=== PATIENT | female | born 1940 | race Caucasian/White ===

== ENCOUNTER → 2018-08-22 | Outpatient (CLI) | payer MEDICARE, BC ==
--- NOTE | 2018-08-22 13:40 | RADIOLOGY IMAGING REPORT ---
FACILITY: [facility] PATIENT NAME: Chtaa Archuleta : 1940 MR: [id number] V: [id number] EXAM DATE: ORDERING PHYSICIAN: LUPIS WATTS TECHNOLOGIST: Location: [facility] Patient: Chata Archuleta : 1940 Visit/Account:[id number] Date of Sevice: 08/22/2018 DEXA Scan Clinical history: Postmenopausal. Comparison: None available. LUMBAR SPINE: The bone mineral density (BMD) measured from L1-L4 correlates with a Z-score 1.1 and a T-score of -0. 1 which is Normal as defined by the World Health Organization. The corresponding risk of fracture in the lumbar spine is Not increased compared with a young adult reference population. HIP: Bone mineral density (BMD) measured in the Left total hip region correlates with a Z-score 0.5 and a T-score of -1 which is Normal as defined by the World Health Organization. The corresponding risk of fracture in the hip is 2 times increased compared with a young adult reference population. T score left femoral neck -2 Bone mineral density (BMD) measured in the Femoral Neck region measures 0.763 g/cm2. Impression: 1. Lumbar spine: Normal. 2. Left Hip: Normal. 3. Femoral Neck: Bone Mineral Density is 0.763 g/cm2 The next DEXA scan of this patient should include the following sites: L1-L4 and the left hip. FRAX? WHO Fracture Risk Assessment Tool link: <http://www.shef.ac.uk/FRAX/tool.jsp?locationValue=9> PLEASE NOTE: 1) The World Health Organization defines low BMD as follows: T-score Normal > -1 Osteopenia < -1 and > -2.5 Osteoporosis < -2.5 without fractures Established osteoporosis < -2.5 with fractures 2) In general, you may wish to consider: Diagnosis Treatment Follow-up DEXA Normal BMD Prevention 2-3 years Osteopenia Prevention/therapy 1-2 years Osteoporosis Therapy Yearly 3) Fracture risk estimated from the T-score is more accurate for vertebral fractures (often spontane ous) than for hip fractures. Report Dictated By: Aysha Castanon MD at 08/22/2018 1:36 PM Report E-Signed By: Aysha Castanon MD at 08/22/2018 1:37 PM WSN:[email or web address]
--- NOTE | 2018-08-22 14:59 | RADIOLOGY IMAGING REPORT ---
FACILITY: [facility] PATIENT NAME: NOVA ARMAS : [id number] MR: [id number] V: [id number] EXAM DATE: ORDERING PHYSICIAN: LUPIS WATTS TECHNOLOGIST: Denia Douglas PROCEDURE:BILATERAL DIGITAL SCREENING MAMMOGRAM WITH CAD ASSISTED INTERPRETATION & 3D TOMOSYNTHESIS COMPARISON:Prior mammograms 07/28/17, 04/03/15, 04/03/14. INDICATIONS:SCREENING FINDINGS: A small amount of fibroglandular tissue is seen throughout the breasts. The parenchymal pattern has remained stable allowing for difference in mammographic technique & patient positioning. There is no evidence of malignant appearing mass, malignant appearing calcifications or other secondary sign of malignancy in either breast. DIAGNOSTIC CATEGORY 1--NEGATIVE. RECOMMENDATIONS: ROUTINE MAMMOGRAM AND CLINICAL EVALUATION. IMPRESSION: BIRADS 1: Negative. No significant abnormality is seen. Dictated by: Aysha Castanon M.D. on 08/22/2018 at 14:43 Transcribed by: SLIM on 08/22/2018 at 14:47 Approved by: Aysha Castanon M.D. on 08/22/2018 at 14:58 [facility]
== END ==
LOC: MAMO 00:30
PROVIDERS: ATTEND Physician Assistant
DX: Z12.31 Encounter for screening mammogram for malignant neoplasm of breast (principal); N95.8 Other specified menopausal and perimenopausal disorders
CPT/HCPCS: 77063; 77067; 77080

== ENCOUNTER → 2019-03-06 | Outpatient (REF) | payer MEDICARE, BC | LOC: ZZSENDIN 10:49 | PROVIDERS: ATTEND Physician Assistant | DX: R39.15 Urgency of urination (principal) | CPT/HCPCS: 87088 ==